=== PATIENT | male | born 1955 | race Caucasian/White ===

== ENCOUNTER 2020-04-25 10:00 | Outpatient (REF) | payer OTHER, SELFPAY ==
[2020-04-25 12:43] LABS: Estimated Average Glucose 140 mg/dL; Hemoglobin A1c % 6.5 %
== END 2020-04-25 10:01 | disposition home or self-care (01) ==
LOC: HO.MANLR 10:00
PROVIDERS: PCP Internal Medicine; Visit Provider Internal Medicine
DX: E11.9 Type 2 diabetes mellitus without complications (principal)
CPT/HCPCS: 83036

== ENCOUNTER 2020-09-10 08:23 | Outpatient (REF) | payer MEDICARE, SELFPAY ==
[2020-09-10 11:40] LABS: Estimated Average Glucose 186 mg/dL; Hemoglobin A1c % 8.1 %
[2020-09-10 12:38] LABS: Alanine Aminotransferase 30 U/L (0-40); Albumin Level 4.3 g/dL (3.5-5.0); Alkaline Phosphatase 81 U/L (39-117); Anion Gap 13 (12-20); Aspartate Amino Transferase 13 U/L (5-37); Bilirubin Total 0.7 mg/dL (0.0-1.0); Blood Urea Nitrogen 21 mg/dL (9-16); Calcium 9.4 mg/dL (8.4-10.2); Carbon Dioxide 28 mmol/L (22-29); Chloride 103 mmol/L (96-108); Cholesterol 220 mg/dL; Estimated Glomerular Filt Rate > 60; Glucose Fasting 173 mg/dL (60-99); HDL Cholesterol 47 mg/dL; LDL Cholesterol Calculated 101 mg/dl; Potassium 4.5 mmol/L (3.3-5.1); Sodium 139 mmol/L (135-145); Total Protein 6.8 g/dL (6.5-8.0); Triglycerides 362 mg/dL
[2020-09-10 14:35] LABS: Creatinine Urine 147.68 mg/dL; Microalbum/Creatinine Ratio Ur 16.2 ug/mg cr
== END 2020-09-10 08:24 | disposition home or self-care (01) ==
LOC: HO.MANLR 08:23
PROVIDERS: PCP Internal Medicine; Visit Provider Internal Medicine
DX: E11.9 Type 2 diabetes mellitus without complications (principal); E78.5 Hyperlipidemia, unspecified
CPT/HCPCS: 36415; 80053; 80061; 82043; 83036

== ENCOUNTER 2020-10-31 15:16 | Outpatient (REF) | payer MEDICARE, SELFPAY ==
[2020-11-01 04:42] LABS: Estimated Average Glucose 171 mg/dL; Hemoglobin A1c % 7.6 %
== END 2020-10-31 15:17 | disposition home or self-care (01) ==
LOC: HO.MANLDS 15:16
PROVIDERS: PCP Internal Medicine; Visit Provider Internal Medicine
DX: E11.9 Type 2 diabetes mellitus without complications (principal); E78.5 Hyperlipidemia, unspecified
CPT/HCPCS: 36415; 83036

== ENCOUNTER 2021-02-20 10:53 | Outpatient (REF) | payer MEDICARE, SELFPAY ==
[2021-02-20 13:13] LABS: Estimated Average Glucose 126 mg/dL
== END 2021-02-20 10:54 | disposition home or self-care (01) ==
LOC: HO.MANLDS 10:53
PROVIDERS: PCP Internal Medicine; Visit Provider Internal Medicine
DX: E11.9 Type 2 diabetes mellitus without complications (principal)
CPT/HCPCS: 36415; 83036

== ENCOUNTER 2021-06-18 08:49 | Outpatient (REF) | payer MEDICARE, SELFPAY ==
[2021-06-18 11:17] LABS: Estimated Average Glucose 128 mg/dL; Hemoglobin A1c % 6.1 %
== END 2021-06-18 08:50 | disposition home or self-care (01) ==
LOC: HO.MANLDS 08:49
PROVIDERS: PCP Internal Medicine; Visit Provider Internal Medicine
DX: E11.9 Type 2 diabetes mellitus without complications (principal)
CPT/HCPCS: 36415; 83036

== ENCOUNTER 2021-09-23 09:13 | Outpatient (REF) | payer MEDICARE, SELFPAY ==
[2021-09-23 11:35] LABS: Estimated Average Glucose 131 mg/dL; Hemoglobin A1c % 6.2 %
== END 2021-09-23 09:14 | disposition home or self-care (01) ==
LOC: HO.MANLDS 09:13
PROVIDERS: PCP Internal Medicine; Visit Provider Internal Medicine
DX: E11.9 Type 2 diabetes mellitus without complications (principal)
CPT/HCPCS: 36415; 83036

== ENCOUNTER 2022-01-10 08:31 | Outpatient (REF) | payer MEDICARE, SELFPAY ==
[2022-01-10 11:20] LABS: Estimated Average Glucose 128 mg/dL; Hemoglobin A1c % 6.1 %
[2022-01-10 11:21] LABS: Alanine Aminotransferase 12 U/L (0-40); Albumin Level 4.6 g/dL (3.5-5.0); Alkaline Phosphatase 71 U/L (39-117); Anion Gap 15 (12-20); Aspartate Amino Transferase 13 U/L (5-37); Bilirubin Total 0.2 mg/dL (0.0-1.0); Blood Urea Nitrogen 40 mg/dL (9-16); Calcium 9.8 mg/dL (8.4-10.2); Carbon Dioxide 20 mmol/L (22-29); Chloride 109 mmol/L (96-108); Cholesterol 184 mg/dL; Estimated Glomerular Filt Rate 42; Glucose Random 114 mg/dL (60-115); HDL Cholesterol 36 mg/dL; LDL Cholesterol Calculated 99 mg/dl; Potassium 5.9 mmol/L (3.3-5.1); Sodium 138 mmol/L (135-145); Total Protein 7.3 g/dL (6.5-8.0); Triglycerides 248 mg/dL
[2022-01-10 11:56] LABS: Microalbum/Creatinine Ratio Ur 17.8 ug/mg cr
== END 2022-01-10 08:32 | disposition home or self-care (01) ==
LOC: HO.MANLDS 08:31
PROVIDERS: Visit Provider Internal Medicine
DX: E11.9 Type 2 diabetes mellitus without complications (principal)
CPT/HCPCS: 36415; 80053; 80061; 82043; 83036

== ENCOUNTER 2022-01-20 10:11 | Outpatient (REF) | payer MEDICARE, SELFPAY ==
[2022-01-20 12:19] LABS: Anion Gap 13 (12-20); Blood Urea Nitrogen 24 mg/dL (9-16); Carbon Dioxide 22 mmol/L (22-29); Chloride 108 mmol/L (96-108); Estimated Glomerular Filt Rate 50; Glucose Random 152 mg/dL (60-115); Potassium 4.7 mmol/L (3.3-5.1); Sodium 138 mmol/L (135-145)
== END 2022-01-20 10:12 | disposition home or self-care (01) ==
LOC: HO.MANLDS 10:11
PROVIDERS: Visit Provider Internal Medicine
DX: E87.5 Hyperkalemia (principal)
CPT/HCPCS: 36415; 80048

== ENCOUNTER 2022-02-03 10:08 | Outpatient (REF) | payer MEDICARE, SELFPAY ==
[2022-02-03 11:49] LABS: Anion Gap 12 (12-20); Blood Urea Nitrogen 24 mg/dL (9-16); Carbon Dioxide 25 mmol/L (22-29); Chloride 108 mmol/L (96-108); Estimated Glomerular Filt Rate 49; Glucose Random 225 mg/dL (60-115); Potassium 4.8 mmol/L (3.3-5.1); Sodium 140 mmol/L (135-145)
== END 2022-02-03 10:09 | disposition home or self-care (01) ==
LOC: HO.MANLDS 10:08
PROVIDERS: Visit Provider Internal Medicine
DX: E87.6 Hypokalemia (principal)
CPT/HCPCS: 36415; 80048

== ENCOUNTER 2022-02-24 11:29 | Outpatient (REF) | payer MEDICARE, SELFPAY ==
[2022-02-24 14:05] LABS: Anion Gap 14 (12-20); Blood Urea Nitrogen 22 mg/dL (9-16); Calcium 9.3 mg/dL (8.4-10.2); Carbon Dioxide 23 mmol/L (22-29); Chloride 105 mmol/L (96-108); Estimated Glomerular Filt Rate 46; Glucose Random 308 mg/dL (60-115); Potassium 4.9 mmol/L (3.3-5.1); Sodium 137 mmol/L (135-145)
== END 2022-02-24 11:30 | disposition home or self-care (01) ==
LOC: HO.MANLDS 11:29
PROVIDERS: Visit Provider Internal Medicine
DX: N28.9 Disorder of kidney and ureter, unspecified (principal)
CPT/HCPCS: 36415; 80048

== ENCOUNTER 2022-04-08 10:39 | Outpatient (REF) | payer MEDICARE, SELFPAY ==
[2022-04-08 14:33] LABS: Anion Gap 21 (12-20); Blood Urea Nitrogen 24 mg/dL (9-16); Calcium 10.2 mg/dL (8.4-10.2); Carbon Dioxide 21 mmol/L (22-29); Chloride 105 mmol/L (96-108); Estimated Glomerular Filt Rate 49; Glucose Random 160 mg/dL (60-115); Potassium 5.8 mmol/L (3.3-5.1); Sodium 141 mmol/L (135-145)
[2022-04-09 05:10] LABS: Estimated Average Glucose 128 mg/dL; Hemoglobin A1c % 6.1 %
== END 2022-04-08 10:40 | disposition home or self-care (01) ==
LOC: HO.MANLDS 10:39
PROVIDERS: Visit Provider Internal Medicine
DX: N28.9 Disorder of kidney and ureter, unspecified (principal)
CPT/HCPCS: 36415; 80048; 83036

== ENCOUNTER 2022-07-15 08:17 | Outpatient (REF) | payer MEDICARE, SELFPAY ==
[2022-07-15 11:54] LABS: Estimated Average Glucose 134 mg/dL; Hemoglobin A1c % 6.3 %
[2022-07-15 12:13] LABS: Alanine Aminotransferase 15 U/L (0-40); Albumin Level 4.4 g/dL (3.5-5.0); Alkaline Phosphatase 71 U/L (39-117); Anion Gap 11 (12-20); Aspartate Amino Transferase 15 U/L (5-37); Bilirubin Total 0.7 mg/dL (0.0-1.0); Blood Urea Nitrogen 25 mg/dL (9-16); Calcium 9.7 mg/dL (8.4-10.2); Carbon Dioxide 25 mmol/L (22-29); Chloride 106 mmol/L (96-108); Cholesterol 145 mg/dL; Estimated Glomerular Filt Rate 56; Glucose Random 136 mg/dL (60-115); HDL Cholesterol 46 mg/dL; LDL Cholesterol Calculated 65 mg/dl; Sodium 137 mmol/L (135-145); Total Protein 6.8 g/dL (6.5-8.0); Triglycerides 173 mg/dL
[2022-07-15 15:04] LABS: Creatinine Urine 89.62 mg/dL; Microalbum/Creatinine Ratio Ur 33.4 ug/mg cr
== END 2022-07-15 08:18 | disposition home or self-care (01) ==
LOC: HO.MANLDS 08:17
PROVIDERS: Visit Provider Internal Medicine
DX: E11.9 Type 2 diabetes mellitus without complications (principal)
CPT/HCPCS: 36415; 80053; 80061; 82043; 83036

== ENCOUNTER 2022-10-10 09:26 | Outpatient (REF) | payer MEDICARE, SELFPAY ==
[2022-10-10 12:20] LABS: Estimated Average Glucose 143 mg/dL; Hemoglobin A1c % 6.6 %
== END 2022-10-10 09:27 | disposition home or self-care (01) ==
LOC: HO.MANLDS 09:26
PROVIDERS: Visit Provider Internal Medicine
DX: E11.9 Type 2 diabetes mellitus without complications (principal)
CPT/HCPCS: 36415; 83036

== ENCOUNTER 2023-01-20 10:08 | Outpatient (REF) | payer MEDICARE, SELFPAY ==
[2023-01-20 13:37] LABS: Estimated Average Glucose 126 mg/dL
[2023-01-20 14:02] LABS: Alanine Aminotransferase 20 U/L (0-40); Albumin Level 4.3 g/dL (3.5-5.0); Alkaline Phosphatase 88 U/L (39-117); Anion Gap 14 (12-20); Aspartate Amino Transferase 12 U/L (5-37); Bilirubin Total 0.5 mg/dL (0.0-1.0); Blood Urea Nitrogen 18 mg/dL (9-16); Calcium 9.9 mg/dL (8.4-10.2); Carbon Dioxide 23 mmol/L (22-29); Chloride 107 mmol/L (96-108); Estimated Glomerular Filt Rate 50; Glucose Random 214 mg/dL (60-115); Potassium 4.6 mmol/L (3.3-5.1); Sodium 139 mmol/L (135-145); Total Protein 6.9 g/dL (6.5-8.0)
[2023-01-20 14:05] LABS: Prostate Specific Antigen 0.89 ng/mL (<0.05-4.0)
== END 2023-01-20 10:09 | disposition home or self-care (01) ==
LOC: HO.MANLDS 10:08
PROVIDERS: Visit Provider Internal Medicine
DX: E11.9 Type 2 diabetes mellitus without complications (principal); Z12.5 Encounter for screening for malignant neoplasm of prostate
CPT/HCPCS: 36415; 80053; 83036; 84153

== ENCOUNTER 2023-04-29 08:22 | Outpatient (REF) | payer MEDICARE, SELFPAY ==
[2023-04-29 14:10] LABS: Estimated Average Glucose 128 mg/dL; Hemoglobin A1c % 6.1 % (<6.0)
[2023-04-29 14:34] LABS: Cholesterol 144 mg/dL (<200); HDL Cholesterol 47 mg/dL (>40); LDL Cholesterol Calculated 73 mg/dL (<100); Triglycerides 124 mg/dL (<150)
== END 2023-04-29 08:23 | disposition home or self-care (01) ==
LOC: HO.MANLDS 08:22
PROVIDERS: Visit Provider Internal Medicine
DX: E11.9 Type 2 diabetes mellitus without complications (principal); Z12.5 Encounter for screening for malignant neoplasm of prostate
CPT/HCPCS: 36415; 80061; 83036

== ENCOUNTER 2023-07-03 08:08 | Outpatient (REF) | payer MEDICARE, SELFPAY ==
[2023-07-03 13:56] LABS: Estimated Average Glucose 137 mg/dL; Hemoglobin A1c % 6.4 % (<6.0)
[2023-07-03 14:05] LABS: Alanine Aminotransferase 14 U/L (0-40); Albumin Level 4.3 g/dL (3.5-5.0); Alkaline Phosphatase 63 U/L (39-117); Anion Gap 14 (12-20); Aspartate Amino Transferase 16 U/L (5-37); Bilirubin Total 0.4 mg/dL (0.0-1.0); Blood Urea Nitrogen 27 mg/dL (9-16); Calcium 9.6 mg/dL (8.4-10.2); Carbon Dioxide 21 mmol/L (22-29); Chloride 107 mmol/L (96-108); Cholesterol 158 mg/dL (<200); Estimated Glomerular Filt Rate 53; Glucose Random 140 mg/dL (60-115); HDL Cholesterol 48 mg/dL (>40); LDL Cholesterol Calculated 81 mg/dL (<100); Potassium 4.3 mmol/L (3.3-5.1); Sodium 138 mmol/L (135-145); Total Protein 6.9 g/dL (6.5-8.0); Triglycerides 149 mg/dL (<150)
== END 2023-07-03 08:09 | disposition home or self-care (01) ==
LOC: HO.MANLDS 08:08
PROVIDERS: Visit Provider Internal Medicine
DX: E11.9 Type 2 diabetes mellitus without complications (principal); Z12.5 Encounter for screening for malignant neoplasm of prostate
CPT/HCPCS: 36415; 80053; 80061; 83036

== ENCOUNTER 2023-10-28 08:01 | Outpatient (REF) | payer MEDICARE, SELFPAY ==
[2023-10-28 13:40] LABS: Estimated Average Glucose 146 mg/dL; Hemoglobin A1c % 6.7 % (<6.0)
== END 2023-10-28 08:02 | disposition home or self-care (01) ==
LOC: HO.MANLDS 08:01
PROVIDERS: Visit Provider Internal Medicine
DX: E11.9 Type 2 diabetes mellitus without complications (principal)
CPT/HCPCS: 36415; 83036

== ENCOUNTER 2024-02-22 08:08 | Outpatient (REF) | payer MEDICARE, SELFPAY ==
[2024-02-22 13:32] LABS: Alanine Aminotransferase 12 U/L (0-40); Albumin Level 4.5 g/dL (3.5-5.0); Alkaline Phosphatase 71 U/L (39-117); Anion Gap 14 (12-20); Aspartate Amino Transferase 13 U/L (5-37); Bilirubin Total 0.4 mg/dL (0.0-1.0); Blood Urea Nitrogen 23 mg/dL (9-16); Calcium 9.6 mg/dL (8.4-10.2); Carbon Dioxide 22 mmol/L (22-29); Chloride 109 mmol/L (96-108); Cholesterol 172 mg/dL (<200); Estimated Glomerular Filt Rate 56; Glucose Random 122 mg/dL (60-115); HDL Cholesterol 41 mg/dL (>40); LDL Cholesterol Calculated 85 mg/dL (<100); Potassium 4.2 mmol/L (3.3-5.1); Sodium 141 mmol/L (135-145); Total Protein 7.1 g/dL (6.5-8.0); Triglycerides 232 mg/dL (<150)
[2024-02-22 13:42] LABS: Estimated Average Glucose 137 mg/dL; Hemoglobin A1c % 6.4 % (<6.0)
[2024-02-22 13:43] LABS: Creatinine Urine 85.12 mg/dL; Microalbum/Creatinine Ratio Ur 11.7 ug/mg cr (<30)
== END 2024-02-22 08:09 | disposition home or self-care (01) ==
LOC: HO.MANLDS 08:08
PROVIDERS: Visit Provider Internal Medicine
DX: E11.9 Type 2 diabetes mellitus without complications (principal); E78.00 Pure hypercholesterolemia, unspecified
CPT/HCPCS: 36415; 80053; 80061; 82043; 82570; 83036

== ENCOUNTER 2024-05-27 10:37 | Outpatient (REF) | payer MEDICARE, SELFPAY ==
[2024-05-27 13:49] LABS: Estimated Average Glucose 140 mg/dL; Hemoglobin A1C 178.3658 umol/L; Hemoglobin A1c % 6.5 % (<6.0); Total Hemoglobin (HGBA1C) 3753.1435 umol/L
== END 2024-05-27 10:38 | disposition home or self-care (01) ==
LOC: HO.MANLDS 10:37
PROVIDERS: Visit Provider Internal Medicine
DX: E11.9 Type 2 diabetes mellitus without complications (principal); E78.00 Pure hypercholesterolemia, unspecified
CPT/HCPCS: 36415; 83036

== ENCOUNTER 2024-09-16 09:07 | Outpatient (REF) | payer MEDICARE, SELFPAY ==
--- OUTSIDE RECORDS SUMMARY | 2024-09-16 09:51 | XMS_ITS | Data Portability ---
Author Organization [facility] Home Service Address [address] [place] [address] Assessment Encounter Date Assessment Date Assessment LastModified by Organization Details LastModified Time 07/17/2023 07/17/2023 . [email or web address] Not available 11/2023 13:52:07 11/03/2023 11/03/2023 [id number] [place] [id number] (REFRIGERATOR GLAZIER) [facility] MODERATE MUST MEET 2 OUT OF 3 ELEMENTS: PROBLEMS, DATA OR RISK ELEMENT 1: PROBLEMS ADDRESSED 1 OR MORE CHRONIC ILLNESS WITH EXACERBATION OR 2 OR MORE STABLE CHRONIC ILLNESSES OR 1 UNDIAGNOSED NEW PROBLEM OR 1 ACUTE ILLNESS W/SYMPTOMS OR 1 ACUTE COMPLICATED INJURY ELEMENT 2: DATA MUST MEET 1 OF 3 CATEGORIES CATEGORY 1: REVIEW OF PRIOR EXTERNAL NOTES, REVIEW OF RESULTS, ORDERING OF EACH TEST, ASSESSMENT REQUIRING INDEPENDENT HISTORIAN OR CATEGORY 2: INDEPENDENT INTERPRETATION OF TESTS BY ANOTHER PHYSICIAN OR SPECIALIST OR CATEGORY 3: DISCUSSION OF MGT OR TEST INTERPRETATION W/EXTERNAL PHYSICIAN OR SPECIALIST ELEMENT 3: RISK RISK OF COMPLICATIONS AND/OR MORBIDITY OR MORTALITY OF PATIENT MANAGEMENT PROVIDER MUST THOROUGHLY DOCUMENT EACH ELEMENT THAT IS COVERED Not available 11/03/2023 14:04:19 12/16/2023 12/16/2023 [id number] [place] [id number] (REFRIGERATOR GLAZIER) [facility]DM MODERATE MUST MEET 2 OUT OF 3 ELEMENTS: PROBLEMS, DATA OR RISK ELEMENT 1: PROBLEMS ADDRESSED 1 OR MORE CHRONIC ILLNESS WITH EXACERBATION OR 2 OR MORE STABLE CHRONIC ILLNESSES OR 1 UNDIAGNOSED NEW PROBLEM OR 1 ACUTE ILLNESS W/SYMPTOMS OR 1 ACUTE COMPLICATED INJURY ELEMENT 2: DATA MUST MEET 1 OF 3 CATEGORIES CATEGORY 1: REVIEW OF PRIOR EXTERNAL NOTES, REVIEW OF RESULTS, ORDERING OF EACH TEST, ASSESSMENT REQUIRING INDEPENDENT HISTORIAN OR CATEGORY 2: INDEPENDENT INTERPRETATION OF TESTS BY ANOTHER PHYSICIAN OR SPECIALIST OR CATEGORY 3: DISCUSSION OF MGT OR TEST INTERPRETATION W/EXTERNAL PHYSICIAN OR SPECIALIST ELEMENT 3: RISK RISK OF COMPLICATIONS AND/OR MORBIDITY OR MORTALITY OF PATIENT MANAGEMENT PROVIDER MUST THOROUGHLY DOCUMENT EACH ELEMENT THAT IS COVERED Not available 12/16/2023 14:04:38 02/23/2024 02/23/2024 [id number] [place] [id number] (REFRIGERATOR GLAZIER) MDM MODERATE MUST MEET 2 OUT OF 3 ELEMENTS: PROBLEMS, DATA OR RISK ELEMENT 1: PROBLEMS ADDRESSED 1 OR MORE CHRONIC ILLNESS WITH EXACERBATION OR 2 OR MORE STABLE CHRONIC ILLNESSES OR 1 UNDIAGNOSED NEW PROBLEM OR 1 ACUTE ILLNESS W/SYMPTOMS OR 1 ACUTE COMPLICATED INJURY ELEMENT 2: DATA MUST MEET 1 OF 3 CATEGORIES CATEGORY 1: REVIEW OF PRIOR EXTERNAL NOTES, REVIEW OF RESULTS, ORDERING OF EACH TEST, ASSESSMENT REQUIRING INDEPENDENT HISTORIAN OR CATEGORY 2: INDEPENDENT INTERPRETATION OF TESTS BY ANOTHER PHYSICIAN OR SPECIALIST OR CATEGORY 3: DISCUSSION OF MGT OR TEST INTERPRETATION W/EXTERNAL PHYSICIAN OR SPECIALIST ELEMENT 3: RISK RISK OF COMPLICATIONS AND/OR MORBIDITY OR MORTALITY OF PATIENT MANAGEMENT PROVIDER MUST THOROUGHLY DOCUMENT EACH ELEMENT THAT IS COVERED Not available 02/23/2024 14:20:57 06/01/2024 06/01/2024 [id number] [place] [id number] (REFRIGERATOR GLAZIER) MDM MODERATE MUST MEET 2 OUT OF 3 ELEMENTS: PROBLEMS, DATA OR RISK ELEMENT 1: PROBLEMS ADDRESSED 1 OR MORE CHRONIC ILLNESS WITH EXACERBATION OR 2 OR MORE STABLE CHRONIC ILLNESSES OR 1 UNDIAGNOSED NEW PROBLEM OR 1 ACUTE ILLNESS W/SYMPTOMS OR 1 ACUTE COMPLICATED INJURY ELEMENT 2: DATA MUST MEET 1 OF 3 CATEGORIES CATEGORY 1: REVIEW OF PRIOR EXTERNAL NOTES, REVIEW OF RESULTS, ORDERING OF EACH TEST, ASSESSMENT REQUIRING INDEPENDENT HISTORIAN OR CATEGORY 2: INDEPENDENT INTERPRETATION OF TESTS BY ANOTHER PHYSICIAN OR SPECIALIST OR CATEGORY 3: DISCUSSION OF MGT OR TEST INTERPRETATION W/EXTERNAL PHYSICIAN OR SPECIALIST ELEMENT 3: RISK RISK OF COMPLICATIONS AND/OR MORBIDITY OR MORTALITY OF PATIENT MANAGEMENT PROVIDER MUST THOROUGHLY DOCUMENT EACH ELEMENT THAT IS COVERED Not available 06/01/2024 16:22:39 Plan of Treatment Reminders Order Date Submit Date Provider Last Modified By Organization Details Last Modified Time Details Appointments FOLLOW UP 15 2024 02:00P M DR LEE Not available Not available Not available Lab HbA1c (hemoglob in A1c), blood 2023 024 [facility], [address] [place] [address], [place], [address], 05/30/2024 11:31:17 HbA1c (hemoglob in A1c), blood 2023 024 [facility], [address] [facility], [place], [address], 05/30/2024 11:31:17 Referral None recorded. Procedures None recorded. Surgeries None recorded. Imaging None recorded. Medication Orders amlodipin e 5 mg tablet 2023 [id number], [address], [place], [phone], 11/03/2023 14:08:17 Patient TargetsNo targets recorded. Patient InstructionsNo instructions recorded. Reason for Referral None Reported. Results Created Date Observation Date Name Description Value Unit Range Abnormal Flag Note LastModifiedBy Organization Detail LastModifiedTime Result Notes None recorded. Problems Name Problem SNOMED Code Status Onset Date Resolution Date Notes Provider Name and Address Organization Details Recorded Time Hypertensi ve disorder 86063529 Active 2020 Fredi Lee, [address] [place] [address], [phone], [facility] 1 12:18:21 Hyperkalem ia 70522888 Active 2021 Fredi Lee, [address] [place] [address], [phone], [facility] 2 15:08:31 Renal insufficie ncy 575477954 Active 2021 Fredi Lee DO [address] [place] [address], [phone], [facility] 2 15:19:32 Type 2 diabetes mellitus 44386473 Active 2017 Vale martinez [facility] 8 12:10:24 Hypertrigl yceridemia 032746101 Active 2017 Vale martinez [facility] 8 12:10:55 Problem Notes None recorded. Procedures Surgical History Date Name Laterality Status Provider Name and Address Organization Details Recorded Time 0 Colonoscopy completed Vale Churchill [facility] 10/12/2019 10:17:59 Imaging Results None recorded. Procedure Notes None recorded. Medical Equipment None Reported. Allergies Allergen ID Allergen Name Allergen Category Reaction Reaction Severity Criticality Documentation Date Start Date Code Code System Note Provider Name and Address Organization Details Recorded Time 3785 metformin medicatio n diarrhea Not available Not available 10/12/2019 6809 RxNorm Fredi Lee, DO [address] [place], [address], [facility] 0 13:45:52 731 penicilli n V Not available Not available Not available Not available 10/07/2017 7984 RxNorm quest ionab lalitha martinez, [facility] 8 12:10:16 Medications Name Sig Start Date Stop Date Status Note LastModified by Organization Details LastModified Time Prescription - Prior Authorizatio n Request 05/01 completed Not Available Not Available Not Available azithromycin 250 mg tablet 05/05 completed Not Available Not Available Not Available hydrocodone 5 mg-acetamino phen 325 mg tablet TAKE 1 TABLET BY MOUTH EVERY 6 HOURS NEEDED FOR PAIN 01/23 completed Not Available Not Available Not Available amlodipine 5 mg tablet TAKE 3 TABLETS BY MOUTH EVERY DAY active Not Available Not Available No t Available amoxicillin 500 mg tablet 01/23 completed Not Available Not Available Not Available amlodipine 10 mg tablet TAKE 1 TABLET BY MOUTH EVERY DAY 11/02 completed Not Available Not Available Not Available lisinopril 10 mg tablet TAKE 1 TABLET BY MOUTH EVERY DAY 02/11 completed Not Available Not Available Not Available glimepiride 4 mg tablet TAKE 1 TABLET BY MOUTH TWICE DAILY 2023 active Not Available Not Available Not Avai lable chlorhexidin e gluconate 0.12 % mouthwash 05/05 completed Not Available Not Available Not Available Januvia 100 mg tablet 05/01 completed Not Available Not Available Not Available Janumet 05/01 completed Not Available Not Available Not Available OneTouch Delica Lancets 33 gauge Take 1 each twice a day by miscell. route for 90 days. active Not Available Not Available No t Available OneTouch Verio test strips test twice a day active Not Available Not Available No t Available Janumet XR 50 mg-1,000 mg tablet,exten ded release TAKE 1 TABLET BY MOUTH TWICE DAILY active Not Available Not Available No t Available Soci AdsTouch Verio Flex Start kit test blood sugar twice a day 05/01 completed Not Available Not Available Not Available Vitals Date Recorded Body height Body mass index (BMI) Body weight Heart rate Oxygen saturation Oxygen saturation in Arterial blood by Pulse oximetry Systolic blood pressure Diastolic blood pressure Provider Name and Address Organization Details Last Updated DateTime 4 170.18 cm 22.3 kg/m2 63443.4 8 g 89 /min 97 % 97 % 162 mm[Hg] 82 mm[Hg] Gretta Wilkerson [facility] 4 13:47:48 Date Recorded Body height Body mass index (BMI) Body weight Heart rate Respiratory rate Oxygen saturation Oxygen saturation in Arterial blood by Pulse oximetry Systolic blood pressure Diastolic blood pressure Provider Name and Address Organization Details Last Updated DateTime 4 170.18 cm 22 kg/m2 14784.0 1 g 84 /min 16 /min 98 % 98 % 124 mm[Hg] 70 mm[Hg] Gonzalez Casas [facility] 4 13:50:48 Date Recorded Body height Body mass index (BMI) Body weight Heart rate Oxygen saturation Oxygen saturation in Arterial blood by Pulse oximetry Systolic blood pressure Diastolic blood pressure Provider Name and Address Organization Details Last Updated DateTime 4 170.18 cm 21.6 kg/m2 75249.1 1 g 88 /min 98 % 98 % 142 mm[Hg] 82 mm[Hg] Gonzalez Casas [facility] 4 14:08:54 Date Recorded Body height Body mass index (BMI) Body weight Heart rate Oxygen saturation Oxygen saturation in Arterial blood by Pulse oximetry Systolic blood pressure Diastolic blood pressure Provider Name and Address Organization Details Last Updated DateTime 4 170.18 cm 21.5 kg/m2 27542.1 5 g 84 /min 100 % 100 % 148 mm[Hg] 68 mm[Hg] Kim Doan [facility] 4 16:17:27 Social History Question Answer Notes LastModified by Organizat ion Details LastModified Time Tobacco Smoking Status Never Smoker Shayy martinez [facility] 01/25/2018 15:21:39 What Was The Date Of Your Most Recent Tobacco Screening? 06/01/2024 [email or web address] Information not available 06/01/2024 Do You Or Have You Ever Used Any Other Forms Of Tobacco Or Nicotine? No [email or web address] Information not available 01/23/2023 Sex: Unknown Functional Status None recorded. Mental Status None recorded. Family History Nothing Reported. Medical History No medical history recorded. Immunizations Vaccine Type Date Status Note Provider Nam e and Address Organization Details Recorded Time COVID-19, mRNA, LNP-S, PF, 30 mcg/0.3 mL dose 1 completed Fredi Lee DO [address] [place] [address], [phone], [facility] 02/25/2021 13:35:34 COVID-19, mRNA, LNP-S, PF, 30 mcg/0.3 mL dose 1 completed Fredi Lee DO [address] [place] [address], [phone], [facility] 02/25/2021 13:35:41 COVID-19, mRNA, LNP-S, PF, 30 mcg/0.3 mL dose 1 completed Ana martinez, [facility] 07/18/2022 08:42:54 COVID-19, mRNA, LNP-S, PF, 30 mcg/0.3 mL dose 2 completed Ana martinez [facility] 07/18/2022 08:43:01 zoster, unspecified formulation 0 completed Ana martinez [facility] 07/18/2022 08:43:23 Tdap 1 completed Ana martinez [facility] 07/18/2022 08:43:48 zoster, unspecified formulation 1 completed Fredi Lee DO [address] [place] [address], [phone], [facility] 09/14/2020 14:11:42 Influenza, split virus, quadrivalent, preservative 0 completed Fredi Lee, DO [address] [place] [address], [phone], [facility] 09/14/2020 14:12:08 Past Encounters Encounter ID Performer Location Encounter Start Date Encounter Closed Date Diagnosis/Indication Diagnosis SNOMED-CT Code Diagnosis ICD10 Code Diagnosis Note [id number] Fredi Lee [facility] [address] [facility],[place] [address] 01/25/2018 14:49:26 01/25/2018 16:14:45 Type 2 diabetes mellitus 66683207 E11.9 [id number] Fredi Lee DO [facility] [address] [facility],[place] [address] 05/07/2018 13:46:45 05/07/2018 14:48:07 Hypertriglyceridemia 393795551 E78.1 here for check up will get a new lab in the spring Type 2 cherry betes mellitus 03254465 E11.9 a1c has crept up with no apparent reason wgt is stable but not exercising like he used to but will attend to this will rechk in 3-4 months [id number] Fredi Lee [facility] [address],[place] [address] 09/01/2018 13:39:51 09/01/2018 14:15:46 Hypertriglyceridemia 915113606 E78.1 here for check up will get a new lab in the spring Type 2 cherry betes mellitus 36353332 E11.9 a1c has crept up again with no apparent reason wgt is stable but not exercising like he used to but we talked about checking sugars throughout the day and figuring out the reason for the elevation will rechk in 3-4 months [id number] Fredi Lee [facility] [address],[place] [address] 09/24/2018 11:44:45 09/24/2018 12:11:11 Type 2 diabetes mellitus 41026728 E11.9 a1c has crept up again with no apparent reason wgt is stable but not exercising like he used to but we talked about checking sugars throughout the day and figuring out the reason for the elevation will rechk in 3-4 months will now have him check the sugars in the evening and at bedtime [id number] Fredi Lee DO [facility] [address] [facility],[place] [address] 12/29/2018 13:42:32 12/29/2018 14:18:02 Type 2 diabetes mellitus 87550112 E11.9 a1c has improved overall and is down to 6.8 wgt is down but not exercising like he used to but we talked about checking sugars throughout the day and will try to gain wgt with extra protein intake will rechk in 3-4 months will increase glimepirid e to bid will now have him check the sugars in the evening and at bedtime Hypertriglyceridemia 302 305815 E78.1 here for check up will get a new lab in the spring [id number] Fredi Lee DO [facility] [address] [facility],[place] [address] 04/01/2019 13:43:54 04/01/2019 15:21:22 Type 2 diabetes mellitus 57154526 E11.9 a1c has improved overall and is down to 6.7 was 6.8 wgt is down but not exercising like he used to but we talked about checking sugars throughout the day and will try to gain wgt with extra protein intake will rechk in 3-4 months will increase glimepirid e to bid will now have him check the sugars in the evening and at bedtime Hypertriglyceridemia 302 787282 E78.1 here for check up will get a new lab in the spring [id number] Fredi Lee DO [facility] [address] [facility],[place] [address] 07/04/2019 13:56:45 07/04/2019 14:14:20 Type 2 diabetes mellitus 14545373 E11.9 a1c is up to 8.2 from 6.7 wgt is up to 146 will rechk in 3-4 months will increase glimepirid e to bid Hypertriglyceridemia 302 685210 E78.1 here for check up will get a new lab in the summer [id number] Fredi Lee [facility] [address] [facility],[place] [address] 10/12/2019 13:32:59 10/12/2019 14:12:59 Type 2 diabetes mellitus 41636232 E11.9 a1c is up to 9.0 from 8.2 from 6.7 so we will try janumet XR as a slow release metformin and januvia and see if he tolerates this i gail give samples for 2 months and see how he does wgt is 146 and no change will rechk in 3-4 months glimepirid e to bid sarah need new lab for this january appt pt to call beforehand for lab slip Hypertriglyceridemia 302 006414 E78.1 here for check up will get a new lab in the summer [id number] Fredi Lee [facility] [address] [facility], [place] [address] 01/17/2020 13:31:18 01/17/2020 13:58:40 Hypertriglyceridemia 450748935 E78.1 here for check up and the LDL is down to 75!!!!! Type 2 cherry betes mellitus 71574828 E11.9 a1c is at 6.5 and was up to 9.0 from 8.2 from 6.7 his janumet samples are not covered without a prior auth wgt is 146 and no change will rechk in 3-4 months glimepirid e to daily sarah need new lab for this apr appt pt to call beforehand for lab slip [id number] Fredi Lee [facility] [address] [facility], [place] [address] 05/01/2020 13:44:53 05/01/2020 14:14:05 Hypertriglyceridemia 990132765 E78.1 here for check up and the LDL is down to 75!!!!! Type 2 cherry betes mellitus 20087576 E11.9 a1c is still at 6.5 and was 6.5 from last one and was up to 9.0 from 8.2 from 6.7 his janumet samples are not covered without a prior auth wgt is 146 and no change will rechk in 3-4 months glimepirid e to daily sarah need new lab for this apr appt pt to call beforehand for lab slip [id number] Fredi Lee DO [facility] [address] [facility] [address],[place] [address] 09/14/2020 14:00:34 09/14/2020 15:25:05 Hypertriglyceridemia 958843757 E78.1 here for check up and the LDL is down to 75!!!!! Type 2 cherry betes mellitus 23221492 E11.9 a1c is still at 6.5 and was 6.5 from last one and was up to 9.0 from 8.2 from 6.7 his janumet samples are not covered without a prior auth wgt is 146 and no change will rechk in 3-4 months glimepirid e to daily sarah need new lab for this oct appt pt to call beforehand for lab slip Essential hypertension 88959783 I10 will need to be aggressive [id number] Fredi Lee, [facility] [address] [facility],[address] [facility] [place] [address] 09/28/2020 12:11:25 09/28/2020 14:04:31 Hypertensive disorder 99658173 I10 will cont 10mg lisinopril as he had good bps at home he will record your bps on paper and will bring paper back Type 2 cherry betes mellitus 07241353 E11.9 a1c is still at 6.5 and was 6.5 from last one and was up to 9.0 from 8.2 from 6.7 his janumet samples are not covered without a prior auth wgt is 146 and no change will rechk in 3-4 months glimepirid e to daily will try the increase in janumet but will go back ot 1 if heartburn returns Adult [facility] th examination 983862782 Z00.00 will need to have this done please [id number] Fredi Lee, [facility] [address] [facility] [address],[place] [address] 11/05/2020 13:29:36 11/05/2020 14:09:18 Hypertensive disorder 85577383 I10 bp is now back to normal and no issues Hypertriglyceridemia 302 684730 E78.1 here for check up and the LDL is down to 75!!!!! Type 2 cherry betes mellitus 71179495 E11.9 he is much improved from 8.1 and doing good with 2 janumet and no side effects his a1c is now 7.6 and believe it is even lower than that now [id number] Fredi Lee [facility] [address] [facility],[place] [address] 02/25/2021 13:33:17 02/25/2021 13:57:57 Hypertensive disorder 04019536 I10 bp is now back to normal and no issues but we are wondering if lisinopril was culprit with diarrhea ?? Hypertriglyceridemia 302 188848 E78.1 here for check up and the LDL is down to 75!!!!! Type 2 cherry betes mellitus 70109328 E11.9 he is 6.0 much improved from 8.1 and doing good with 2 janumet and no(?) side effects his a1c is now 6 and believe it is even lower than that now [id number] Fredi Lee [facility] [address] [facility],[place] [address] 06/24/2021 08:57:01 06/24/2021 14:28:17 Hypertensive disorder 48675319 I10 bp is now back to normal and no issues but we are wondering if lisinopril Hypertriglyceridemia 302 952172 E78.1 here for check up and the LDL is down to 75!!!!! Type 2 cherry betes mellitus 24818612 E11.9 latest a1c is 6.1 he was 6.0 much improved from 8.1 and doing good with 2 janumet and one glimepirid 3 and no(?) side effects his a1c is now 6,1 and believe it is even lower than that now [id number] Fredi Lee [facility] [address] [facility],[place] [address] 10/02/2021 13:31:59 10/04/2021 11:47:48 Type 2 diabetes mellitus 17451932 E11.9 latest a1c is 6.2 was 6.1 he was 6.0 much improved from 8.1 and doing good with 2 janumet and one glimepirid 3 and no(?) side effectshas gained some wgthis a1c is now 6,1 and believe it is even lower than that now Hypertensive disorder 38 547076 I10 bp is now back to normal and no issues but we are wondering if lisinopril Hypertriglyceridemia 302 972612 E78.1 here for check up and the LDL is down to 75! 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 he is to stop the lisinopril and will rechk lab in a few days Hypertensive disorder 38 173974 I10 bp is now back to normal and no issues but we are wondering if lisinopril should be discont Type 2 cherry betes mellitus 57047747 E11.9 latest a1c is 6.1 was 6.1 he was 6.0 much improved from 8.1 and doing good with 2 janumet and one glimepirid 3 and no(?) side effectshas gained some wgthis a1c is now 6,1 and believe it is even lower than that now Hypertriglyceridemia 302 934755 E78.1 here for check up and the LDL is down to 99 was 75 [id number] Fredi Lee, [facility] [address] [facility] [place] [address] 02/11/2022 14:40:21 02/11/2022 15:33:24 Advance care planning 687200738 Z71.89 done Type 2 cherry betes mellitus 70264362 E11.9 latest a1c is 6.1 was 6.1 he was 6.0 much improved from 8.1 and doing good with 2 janumet and one glimepirid 3 and no(?) side effectshas gained some wgthis a1c is now 6,1 and believe it is even lower than that nowpatient advised he is due for DM eye exam Depression screening 171 630960 Z13.31 screening today negative Renal insufficiency 7231 22731 N28.9 due to combinatio n of htn DM and primarily dehydratio n as evid by BUN of 40now that he is drinking plenty of h20 his creat clr is better we will cont to follow this and pt will follow his bp at home as well [id number] Fredi WoodardSabrina Lee, [facility] [address] [facility],[place] [address] 04/14/2022 16:13:55 04/14/2022 16:53:17 Hypertensive disorder 74919145 I10 we will try amlodipine Type 2 cherry betes mellitus 51016039 E11.9 latest a1c is 6.1 was 6.1 he was 6.0 much improved from 8.1 and doing good with 2 janumet and one glimepirid 3 and no(?) side effectshas gained some wgthis a1c is now 6,1 and believe it is even lower than that nowpatient advised he is due for DM eye exam Renal insufficiency 7231 37681 N28.9 renal parameters are better after rechk and do not expect any further issuewill rechk in few [place] [id number] Fredi WoodardSabrina Lee [facility] [address] [facility],[place] [address] [place] [address] 07/18/2022 13:39:11 07/18/2022 14:24:49 Type 2 diabetes mellitus [id number] E11.9 latest a1c is 6.3 was 6.1 he was 6.0 much improved fromhas gained some wgthis a1c is now 6,1 and believe it is even lower than that nowpatient advised he is due for DM eye exam Hypertensive disorder 38 852238 I10 we will try amlodipine 10 mg [id number] Fredi Lee, [facility] [address] [facility], [place] [address] 01/23/2023 13:45:29 01/23/2023 14:15:45 Hypertensive disorder [id number] I10 we will cont amlodipine 10 mg Type 2 cherry betes mellitus 78628234 E11.9 latest a1c isdwon to 6 from 6.6 was 6.3 was 6.1 he was 6.0 much improved fromhas lost some wgthis a1c is now 6,0 and believe it is even lower than that nowpatient advised he is due for DM eye exam Renal insufficiency [id number] N28.9 renal parameters are better after rechk and do not expect any further issuewill rechk in few mo Hyperkalemia [id number] E8 7.5 resolved [id number] Fredi Lee [facility] [address] [facility],[place] [address] [place] [address] 05/05/2023 13:46:52 05/05/2023 15:07:23 Hyperkalemia [id number] E87.5 resolved Hypertriglyceridemia 302 640427 E78.1 here for check up and will have this rechk next visit Type 2 cherry betes mellitus 07552023 E11.9 latest a1c is down to 6.1 to 6 from 6.6 was 6.3 was 6.1 he was 6.0 much improved fromhas lost some wgtpatient advised he is due for DM eye exam again Hypertensive disorder 38 127909 I10 we will cont amlodipine 10 mg [id number] Fredi Lee [facility] [address] [facility],[place] [address] [place] [address] 07/17/2023 09:08:20 07/17/2023 13:57:31 Hypertriglyceridemia 043759918 E78.1 here for check up and will have this rechk next visit Type 2 cherry betes mellitus 56320518 E11.9 latest a1c is up to 6.4 6.1 to 6 from 6.6 was 6.3 was 6.1 he was 6.0 much improved fromhas lost some wgtpatient advised he is due for DM eye exam again Hypertensive disorder 38 533216 I10 we will cont amlodipine 10 mg [id number] [facility] [address] [facility],[place] [address] [place] [address] 11/03/2023 13:41:38 11/03/2023 15:45:26 Hypertriglyceridemia 628725254 E78.1 here for check up and will have this rechk next visit Hypertensive disorder 38 858883 I10 has been checking at home and bp has been elevatedwi ll try going to 15mg given he is tolerating the amlodipine so well Type 2 cherry betes mellitus 93278350 E11.9 latest a1c is up to 6.7, 6.4 to 6.1 from 6.6 was 6.3has not been active all last winterpati ent advised he is due for DM eye exam again [id number] Fredi Lee [facility] [address] [facility],[place] [address] 12/16/2023 13:44:50 12/16/2023 15:46:24 Hypertensive disorder 67831224 I10 has been checking at home and bp has [id number] given he is tolerating the amlodipine so well Hypertriglyceridemia 302 152574 E78.1 here for check up and will have this rechk next visit Type 2 cherry betes mellitus 44224485 E11.9 latest a1c is up to 6.7, 6.4 to 6.1 from 6.6 was 6.3has not been active all last [facility] ent advised he is due for DM eye exam again Depression screening 171 598568 Z13.31 screening today negative [id number] Fredi Lee [facility] [address] [facility],[place] [address] 02/23/2024 14:03:32 02/23/2024 14:52:14 Hypertensive disorder 44402251 I10 has been checking at home and bp has [id number] given he is tolerating the amlodipine so well Type 2 cherry betes mellitus 24459697 E11.9 a1c is down to 6.4 was 6.7 no issues now [id number] Fredi Lee [facility] [address] [facility],[place] [address] 06/01/2024 16:12:47 06/01/2024 16:40:52 Type 2 diabetes mellitus 52676518 E11.9 a1c is down to 6.5 doing ok 6.4 was 6.7 no issues now Hypertensive disorder 38 742595 I10 has been checking at home and bp has [id number] given he is tolerating the amlodipine so well Health Concerns Section Related Observation LastModified by Organization Detai ls LastModified Time None Recorded Concern Status LastModified by Organization Details LastModified Time None Recorded Advance Directives Directive None Recorded Payers Encounter Date Sequence Insurance Name Policy Number Policy [place] Covered Member ID [place] Member ID Guarantor Name 07/17/2023 1 [place] [employer] Castro Noyola [id number] Castro A Masaitis 11/03/2023 1 [place]ICARE [place]: [facility] Castro Falkaitis [id number] Castro Woodard Masaitis 12/16/2023 1 [place] [facility] Castro Woodard Masaitis [id number] Castro Woodard Masaitis 02/23/2024 1 [place] [facility] Castro Woodard Masaitis [id number] Castro Woodard Masaitis 06/01/2024 1 [place] [facility] Castro Falkaitis [id number] Castro Falkaitis Notes Date Note Type Note Provider Name and Address Organization Details Recorded Time 4 text/htm l Care Management - DiabetesReported bypatient.Self Care:seeing eye doctor yearly for dilated eye exam; checking feet regularly; normal range of home blood sugars (in the low 100s); no side effects from medications Associated Symptoms:symptoms are usually well controlled; no fatigue; no dizziness; no excessive sweating; no headaches; no confusion; no increased thirst; no increased appetite; no increased urination; no blurred vision; no numbness of feet; no calluses on feetNotes:feels well no vision no cp no sobbowels ok patient is evaluated via tele/video assessment per patient consentduring current pandemiclong discuss re lab results discussed in detail Fredi Lee, DO [address] [place] [address], [place], [address], [facility] 07/17/2023 13:56:16 4 text/htm l Care Management - DiabetesReported bypatient.Self Care:seeing eye doctor yearly for dilated eye exam; checking feet regularly; normal range of home blood sugars (in the low 100s); no side effects from medications Associated Symptoms:symptoms are usually well controlled; no fatigue; no dizziness; no excessive sweating; no headaches; no confusion; no increased thirst; no increased appetite; no increased urination; no blurred vision; no numbness of feet; no calluses on feetCare Management - HypertensionReported bypatient.Self Care:not under emotional stress Severity:symptoms are improving; does not interfere with daily activities Associated Symptoms:no dizziness; no lightheadedness; no chest pain; no shortness of breath; no palpitations; no edema; no calf muscle cramps; no blurred vision; no confusion; no headaches; no fatigue here for rech k and is doing ok ]has noticed a raising of his bp Fredi Lee DO [address] [place] [address], [phone], [facility] 11/03/2023 14:10:44 4 text/htm l here for rechk and is doing ok overallthe amlodipine glimepiride and janumet doing great lost some wgt Fredi LeeDO [address] [place] [address], [phone], [facility] 12/16/2023 14:07:33 4 text/htm l Care Management - DiabetesReported bypatient.Self Care:seeing eye doctor yearly for dilated eye exam; checking feet regularly; normal range of home blood sugars (in the low 100s); no side effects from medications Associated Symptoms:symptoms are usually well controlled; no fatigue; no dizziness; no excessive sweating; no headaches; no confusion; no increased thirst; no increased appetite; no increased urination; no blurred vision; no numbness of feet; no calluses on feetCare Management - HypertensionReported bypatient.Self Care:not under emotional stress Severity:symptoms are improving; does not interfere with daily activities Associated Symptoms:no dizziness; no lightheadedness; no chest pain; no shortness of breath; no palpitations; no edema; no calf muscle cramps; no blurred vision; no confusion; no headaches; no fatigue here for rechkhere for rechk and has been very busy and has lost wgt relates that he has been working outsidewgt [id number] is 6.4 was 6.[address] [place] [address], [phone], [facility] 02/23/2024 14:23:58 4 text/htm l Care Management - DiabetesReported bypatient.Self Care:seeing eye doctor yearly for dilated eye exam; checking feet regularly; normal range of home blood sugars (in the low 100s); no side effects from medications Associated Symptoms:symptoms are usually well controlled; no fatigue; no dizziness; no excessive sweating; no headaches; no confusion; no increased thirst; no increased appetite; no increased urination; no blurred vision; no numbness of feet; no calluses on feetCare Management - HypertensionReported bypatient.Self Care:not under emotional stress Severity:symptoms are improving; does not interfere with daily activities Associated Symptoms:no dizziness; no lightheadedness; no chest pain; no shortness of breath; no palpitations; no edema; no calf muscle cramps; no blurred vision; no confusion; no headaches; no fatigue here for rechk and doing ok overallno major issues noted Fredi Lee, DO [address] [facility], [place], [address], [facility] 06/01/2024 16:38:54
[2024-09-16 13:36] LABS: MANUAL DIFF FLAG NO
[2024-09-16 13:40] LABS: Basophils Absolute Auto 0.1 X10*3/uL (0.0-0.2); Basophils Percent Auto 1.6 % (0-2); Eosinophils Absolute Auto 0.2 X10*3/uL (0.0-0.4); Eosinophils Percent Auto 2.4 % (0-4); Hematocrit 40.5 % (42.0-52.0); Hemoglobin 13.7 g/dl (14.0-18.0); Imm Gran Abs Auto 0.04 X10*3/uL (0.00-0.03); Imm Gran Pct Auto 0.6 % (0.0-0.4); Lymphocytes Absolute Auto 1.5 X10*3/uL (1.2-4.9); Lymphocytes Percent Auto 21.8 % (20-40); Mean Corpuscular HGB Conc 33.8 g/dl (31.0-36.0); Mean Corpuscular Hemoglobin 29.5 pg (27.0-33.0); Mean Corpuscular Volume 87.1 fL (80.0-98.0); Mean Platelet Volume 10.8 fL (9.4-12.4); Monocytes Absolute Auto 0.7 X10*3/uL (0.1-1.2); Monocytes Percent Auto 9.2 % (2-11); Neutrophils Absolute Auto 4.6 x10*3/uL (2.0-8.3); Neutrophils Percent Auto 64.4 % (45-73); Platelet Count 378 X10*3/uL (160-400); Red Blood Count 4.65 X10*6/uL (4.60-5.80); Red Cell Distribution Width 13.2 % (11.0-16.0); White Blood Count 7.1 X10*3/uL (4.8-10.8)
[2024-09-16 14:08] LABS: Estimated Average Glucose 154 mg/dL
[2024-09-16 14:25] LABS: Alanine Aminotransferase 23 U/L (0-40); Albumin Level 4.5 g/dL (3.5-5.0); Anion Gap 14 (12-20); Aspartate Amino Transferase 22 U/L (5-37); Bilirubin Total 0.6 mg/dL (0.0-1.0); Blood Urea Nitrogen 26 mg/dL (9-16); Calcium 9.6 mg/dL (8.4-10.2); Carbon Dioxide 22 mmol/L (22-29); Chloride 106 mmol/L (96-108); Cholesterol 168 mg/dL (<200); Estimated Glomerular Filt Rate 53; Glucose Random 157 mg/dL (60-115); HDL Cholesterol 52 mg/dL (>40); LDL Cholesterol Calculated 76 mg/dL (<100); Potassium 4.4 mmol/L (3.3-5.1); Sodium 138 mmol/L (135-145); Total Protein 7.7 g/dL (6.5-8.0); Triglycerides 201 mg/dL (<150)
[2024-09-16 14:33] LABS: Alkaline Phosphatase 73 U/L (39-117)
[2024-09-16 14:35] LABS: Creatinine Urine 59.79 mg/dL; Microalbum/Creatinine Ratio Ur 56.8 ug/mg cr (<30)
[2024-09-16 15:26] LABS: Prostate Specific Antigen 1.73 ng/mL (<0.05-4.0)
== END 2024-09-16 09:08 | disposition home or self-care (01) ==
LOC: HO.MANLDS 09:07
PROVIDERS: Visit Provider Internal Medicine
DX: I10 Essential (primary) hypertension (principal); E11.9 Type 2 diabetes mellitus without complications; Z12.5 Encounter for screening for malignant neoplasm of prostate
CPT/HCPCS: 36415; 80053; 80061; 82043; 82570; 83036; 84153; 85025

== ENCOUNTER 2024-12-28 10:13 | Outpatient (REF) | payer MEDICARE, SELFPAY ==
--- OUTSIDE RECORDS SUMMARY | 2024-12-28 11:33 | XMS_ITS | Data Portability ---
Author Organization [facility], Telehealth Patient Home Address [address] [place] [address] Assessment Encounter Date Assessment Date Assessment LastModified by Organization Details LastModified Time 11/03/2023 11/03/2023 [id number] [place] [id number] (MASTER DATA ANALYST) MDM MODERATE MUST MEET 2 OUT OF [...] COVERED Not available 11/03/2023 14:04:19 12/16/2023 12/16/2023 [id number] [place] [id number] (MASTER DATA ANALYST) MDM MODERATE MUST MEET 2 OUT OF [...] COVERED Not available 12/16/2023 14:04:38 02/23/2024 02/23/2024 [id number] [place] [id number] (MASTER DATA ANALYST) [facility] MODERATE MUST MEET 2 OUT OF 3 [...] THOROUGHLY DOCUMENT EACH ELEMENT THAT IS COVERED [email or web address] Not available 02/23/2024 14:20:57 06/01/2024 06/01/2024 [id number] [place] [address] (MASTER DATA ANALYST) [facility] MODERATE MUST MEET 2 OUT OF 3 [...] THAT IS COVERED Not available 06/01/2024 16:22:39 09/23/2024 09/23/2024 [id number] [place] [address] (MASTER DATA ANALYST) [facility] MODERATE MUST MEET 2 OUT OF 3 [...] EACH ELEMENT THAT IS COVERED Not available 09/23/2024 14:13:34 Plan of Treatment Reminders Order Date Submit Date Provider Last Modified By Organization Details Last Modified Time Details Appointments FOLLOW UP 15 2024 01:30P M DR LEE Not available Not available Not available Lab HbA1c (hemoglob in A1c), blood 2024 025 [facility], [address] [place] [address], [id number], 09/23/2024 14:34:47 HbA1c (hemoglob in A1c), blood 2023 024 [facility], [address] [place] [address], [id number], 05/30/2024 11:31:17 HbA1c (hemoglob in A1c), blood 2023 024 [facility], [address] [place] [address], [id number], 05/30/2024 11:31:17 Referral None recorded. Procedures None recorded. Surgeries None recorded. Imaging None recorded. Medication Orders amlodipin e 5 mg tablet 2023 024 JOSH Not available 11/03/2023 14:08:17 Patient TargetsNo targets recorded. Patient InstructionsNo instructions recorded. Reason for Referral None Reported. Results Created Date Observation Date Name Description Value Unit Range Abnormal Flag Note LastModifiedBy Organization Detail LastModifiedTime Result Notes None recorded. Problems Name Problem SNOMED Code Status Onset Date Resolution Date Notes Provider Name and Address Organization Details Recorded Time Hypertensi ve disorder 15253425 Active 2020 Fredi Lee DO [address] [place] [address], [address], [facility] 1 12:18:21 Hyperkalem ia 49625758 Active 2021 Fredi Lee DO [address] [place], [address], [facility] 2 15:08:31 Renal insufficie [facility] 209948210 Active 2021 Fredi Lee, DO [address] [place], [address], [facility] 2 15:19:32 Type 2 diabetes mellitus 50788484 Active 2017 Vale martinez [facility] 8 12:10:24 Hypertrigl yceridemia 868116422 Active 2017 Vale martinez [facility] 8 12:10:55 Problem Notes None recorded. Procedures Surgical History Date Name Laterality Status Provider Name and Address Organization Details Recorded Time 0 Colonoscopy completed Vale Zaho [facility] 10/12/2019 10:17:59 Imaging Results None recorded. Procedure Notes None recorded. Medical Equipment None Reported. Allergies Allergen ID Allergen Name Allergen Category Reaction Reaction Severity Criticality Documentation Date Start Date Code Code System Note Provider Name and Address Organization Details Recorded Time 3785 metformin medicatio n diarrhea Not available Not available 10/12/2019 6809 RxNorm Fredi Lee, DO [address] [place], [address], [facility] 0 13:45:52 731 penicilli n V Not available Not available Not available Not available 10/07/2017 7984 RxNorm quest ionab le [facility] 8 12:10:16 Medications Name Sig Start Date [...] TAKE 3 TABLETS BY MOUTH EVERY DAY 2024 active Not Available Not Available Not Avai lable amoxicillin 500 mg tablet 01/23 completed Not [...] Not Available Not Available No t Available chlorhexidin e gluconate 0.12 % mouthwash 05/05 [...] TAKE 1 TABLET BY MOUTH TWICE DAILY 2024 active Not Available Not Available Not Avai lable OneTouch Verio Flex Start kit test blood sugar twice a day 05/01 completed Not Available Not Available Not Available Vitals Date Recorded Body height Body mass index (BMI) Body weight Heart rate Oxygen saturation Oxygen saturation in Arterial blood by Pulse oximetry Systolic blood pressure Diastolic blood pressure Provider Name and Address Organization Details Last Updated DateTime 5 170.18 cm 22.6 kg/m2 96567.3 g 89 /min 98 % 98 % 152 mm[Hg] 74 mm[Hg] Gretta Wilkerson [facility] 5 14:04:52 Date Recorded Body height Body mass index (BMI) Body weight Heart rate Oxygen saturation Oxygen saturation in Arterial blood by Pulse oximetry Systolic blood pressure Diastolic blood pressure Provider Name and Address Organization Details Last Updated DateTime 4 170.18 cm 22.3 kg/m2 92288.4 8 g 89 /min 97 % 97 % 162 mm[Hg] 82 mm[Hg] Gretta Wilkerson [facility] 4 13:47:48 Date Recorded Body height Body mass index (BMI) Body weight Heart rate Respiratory rate Oxygen saturation Oxygen saturation in Arterial blood by Pulse oximetry Systolic blood pressure Diastolic blood pressure Provider Name and Address Organization Details Last Updated DateTime 4 170.18 cm 22 kg/m2 27920.0 1 g 84 /min 16 /min 98 % 98 % 124 mm[Hg] 70 mm[Hg] Gonzalez Casas [facility] 4 13:50:48 Date Recorded Body height Body mass index (BMI) Body weight Heart rate Oxygen saturation Oxygen saturation in Arterial blood by Pulse oximetry Systolic blood pressure Diastolic blood pressure Provider Name and Address Organization Details Last Updated DateTime 4 170.18 cm 21.6 kg/m2 60730.1 1 g 88 /min 98 % 98 % 142 mm[Hg] 82 mm[Hg] Gonzalez Clarion [facility] 4 14:08:54 Date Recorded Body height Body mass index (BMI) Body weight Heart rate Oxygen saturation Oxygen saturation in Arterial blood by Pulse oximetry Systolic blood pressure Diastolic blood pressure Provider Name and Address Organization Details Last Updated DateTime 4 170.18 cm 21.5 kg/m2 98796.1 5 g 84 /min 100 % 100 % 148 mm[Hg] 68 mm[Hg] Kim Doan [facility] 4 16:17:27 Social History Question Answer Notes LastModified by Organizat ion Details LastModified Time Tobacco Smoking Status Never [facility] 01/25/2018 15:21:39 What Was The Date Of Your Most Recent Tobacco Screening? 09/23/2024 [email or web address] Information not available 09/23/2024 Sex: Unknown Functional Status Question Answer Note LastModified by Organization D etails LastModified Time Do you or have you ever used any other forms of tobacco or nicotine? No [email or web address] Information not available 01/23/2023 Mental Status None recorded. Family History Nothing Reported. Medical History No medical history recorded. Immunizations Vaccine Type Date Status Note Provider Nam e and Address Organization Details Recorded Time COVID-19, mRNA, LNP-S, PF, 30 mcg/0.3 mL dose 1 completed Fredi Lee, DO [address] [facility], [place], [address], [facility] 02/25/2021 13:35:34 COVID-19, mRNA, LNP-S, PF, 30 mcg/0.3 mL dose 1 completed Fredi Lee, [address], [address], [facility] Internal [facility] 02/25/2021 13:35:41 COVID-19, mRNA, LNP-S, PF, 30 mcg/0.3 mL dose 1 completed Ana martinez, [facility] 07/18/2022 08:42:54 COVID-19, mRNA, LNP-S, PF, 30 mcg/0.3 mL dose 2 completed Ana Harp null, [facility] 07/18/2022 08:43:01 zoster, unspecified formulation 0 completed Ana martinez, [facility] 07/18/2022 08:43:23 Tdap 1 completed Ana martinez, [facility] 07/18/2022 08:43:48 zoster, unspecified formulation 1 completed Fredi Lee, [address] [place] [address], [address], [facility] Internal [facility] 09/14/2020 14:11:42 Influenza, split virus, quadrivalent, preservative 0 completed Fredi Lee [address], [address], [facility] Internal [facility] 09/14/2020 14:12:08 Past Encounters Encounter ID Performer Location Encounter Start Date Encounter Closed Date Diagnosis/Indication Diagnosis SNOMED-CT Code Diagnosis ICD10 Code Diagnosis Note [id number] Fredi Lee [facility] [address] [place] [address],[place] [address] 01/25/2018 14:49:26 01/25/2018 16:14:45 Type 2 diabetes mellitus 01298841 E11.9 [id number] Fredi Lee [facility] [address] [place] [address],[place] [address] 05/07/2018 13:46:45 05/07/2018 14:48:07 Hypertriglyceridemia 208757613 E78.1 here for check up will get a new lab in the spring Type 2 cherry betes mellitus 28541056 E11.9 a1c has crept up with no apparent reason wgt is stable but not exercising like he used to but will attend to this will rechk in 3-4 months [id number] Fredi Lee DO [facility] Internal [facility] [address] [facility], [facility] [address] 09/01/2018 13:39:51 09/01/2018 14:15:46 Hypertriglyceridemia 589625411 E78.1 here for check up will get a new lab in the spring Type 2 cherry betes mellitus 86336612 E11.9 a1c has crept up again with no apparent reason wgt is stable but not exercising like he used to but we talked about checking sugars throughout the day and figuring out the reason for the elevation will rechk in 3-4 months [id number] Fredi Lee [facility] [address] [facility], [place] [address] 09/24/2018 11:44:45 09/24/2018 12:11:11 Type 2 diabetes mellitus 79601627 E11.9 a1c has crept up again with no apparent reason wgt is stable but not exercising like he used to but we talked about checking sugars throughout the day and figuring out the reason for the elevation will rechk in 3-4 months will now have him check the sugars in the evening and at bedtime [id number] Fredi Lee DO [address], [place] [address] 12/29/2018 13:42:32 12/29/2018 14:18:02 Type 2 diabetes mellitus 18151595 E11.9 a1c has improved overall and is [...] the evening and at bedtime Hypertriglyceridemia 302 676329 E78.1 here for check up will get a new lab in the spring [id number] Fredi Lee [facility] [address] [facility],[place] [address] 04/01/2019 13:43:54 04/01/2019 15:21:22 Type 2 diabetes mellitus 25705116 E11.9 a1c has improved overall and is [...] the evening and at bedtime Hypertriglyceridemia 302 930653 E78.1 here for check up will get a new lab in the spring [id number] Fredi Lee [facility] [address] [facility], [place] [address] 07/04/2019 13:56:45 07/04/2019 14:14:20 Type 2 diabetes mellitus 35531850 E11.9 a1c is up to 8.2 from 6.7 wgt is up to 146 will rechk in 3-4 months will increase glimepirid e to bid Hypertriglyceridemia 302 397677 E78.1 here for check up will get a new lab in the summer [id number] Fredi Lee [facility] [address] [facility], [place] [address] 10/12/2019 13:32:59 10/12/2019 14:12:59 Type 2 diabetes mellitus 60520640 E11.9 a1c is up to 9.0 from [...] call beforehand for lab slip Hypertriglyceridemia 302 574239 E78.1 here for check up will get a new lab in the summer [id number] Fredi Lee [facility] [address] [facility],[place] [address] 01/17/2020 13:31:18 01/17/2020 13:58:40 Hypertriglyceridemia 892794555 E78.1 here for check up and the LDL is down to 75!!!!! Type 2 cherry betes mellitus 95967408 E11.9 a1c is at 6.5 and was up to 9.0 from 8.2 from 6.7 his janumet samples are not covered without a prior auth wgt is 146 and no change will rechk in 3-4 months glimepirid e to daily sarah need new lab for this oct appt pt to call beforehand for lab slip [id number] Fredi Lee [facility] [address] [facility] [place] [address] 05/01/2020 13:44:53 05/01/2020 14:14:05 Hypertriglyceridemia 680160650 E78.1 here for check up and the LDL is down to 75!!!!! Type 2 cherry betes mellitus 27849933 E11.9 a1c is still at 6.5 and was 6.5 from last one and was up to 9.0 from 8.2 from 6.7 his janumet samples are not covered without a prior auth wgt is 146 and no change will rechk in 3-4 months glimepirid e to daily sarah need new lab for this oct appt pt to call beforehand for lab slip [id number] Fredi Lee [facility] [address] [facility] [place] [address] 09/14/2020 14:00:34 09/14/2020 15:25:05 Hypertriglyceridemia 885772387 E78.1 here for check up and the LDL is down to 75!!!!! Type 2 cherry betes mellitus 17000508 E11.9 a1c is still at 6.5 and was 6.5 from last one and was up to 9.0 from 8.2 from 6.7 his janumet samples are not covered without a prior auth wgt is 146 and no change will rechk in 3-4 months glimepirid e to daily sarah need new lab for this oct appt pt to call beforehand for lab slip Essential hypertension 56124900 I10 will need to be aggressive [id number] Fredi Lee [facility] [address] [facility], [place] [place] [facility] [address] 09/28/2020 12:11:25 09/28/2020 14:04:31 Hypertensive disorder 29315515 I10 will cont 10mg lisinopril as he had good bps at home he will record your bps on paper and will bring paper back Type 2 cherry betes mellitus 46291864 E11.9 a1c is still at 6.5 and was 6.5 from last one and was up to 9.0 from 8.2 from 6.7 his janumet samples are not covered without a prior auth wgt is 146 and no change will rechk in 3-4 months glimepirid e to daily will try the increase in janumet but will go back ot 1 if heartburn returns Adult heal th examination 236748998 Z00.00 will need to have this done please [id number] Fredi Lee, [facility] [address],[place] [address] 11/05/2020 13:29:36 11/05/2020 14:09:18 Hypertensive disorder 73974895 I10 bp is now back to normal and no issues Hypertriglyceridemia 302 302430 E78.1 here for check up and the LDL is down to 75!!!!! Type 2 cherry betes mellitus 38098195 E11.9 he is much improved from 8.1 and doing good with 2 janumet and no side effects his a1c is now 7.6 and believe it is even lower than that now [id number] Fredi Lee, [facility] [address],[place] [facility] [address] 02/25/2021 13:33:17 02/25/2021 13:57:57 Hypertensive disorder 45993670 I10 bp is now back to normal and no issues but we are wondering if lisinopril was culprit with diarrhea ?? Hypertriglyceridemia 302 251580 E78.1 here for check up and the LDL is down to 75!!!!! Type 2 cherry betes mellitus 99822519 E11.9 he is 6.0 much improved from 8.1 and doing good with 2 janumet and no(?) side effects his a1c is now 6 and believe it is even lower than that now [id number] Fredi Lee [facility] [address] [facility] [address],[place] [address] 06/24/2021 08:57:01 06/24/2021 14:28:17 Hypertensive disorder 26801610 I10 bp is now back to normal and no issues but we are wondering if lisinopril Hypertriglyceridemia 302 007111 E78.1 here for check up and the LDL is down to 75!!!!! Type 2 cherry betes mellitus 52578504 E11.9 latest a1c is 6.1 he was 6.0 much improved from 8.1 and doing good with 2 janumet and one glimepirid 3 and no(?) side effects his a1c is now 6,1 and believe it is even lower than that now [id number] Fredi Lee [facility] [address] [facility],[place] [address] 10/02/2021 13:31:59 10/04/2021 11:47:48 Type 2 diabetes mellitus 26629227 E11.9 latest a1c is 6.2 was 6.1 he was 6.0 much improved from 8.1 and doing good with 2 janumet and one glimepirid 3 and no(?) side effectshas gained some wgthis a1c is now 6,1 and believe it is even lower than that now Hypertensive disorder 38 030383 I10 bp is now back to normal and no issues but we are wondering if lisinopril Hypertriglyceridemia 302 741498 E78.1 here for check up and the LDL is down to 75! 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 he is to stop the lisinopril and will rechk lab in a few days Hypertensive disorder 38 723549 I10 bp is now back to normal and no issues but we are wondering if lisinopril should be discont Type 2 cherry betes mellitus 94697245 E11.9 latest a1c is 6.1 was 6.1 he was 6.0 much improved from 8.1 and doing good with 2 janumet and one glimepirid 3 and no(?) side effectshas gained some wgthis a1c is now 6,1 and believe it is even lower than that now Hypertriglyceridemia 302 925371 E78.1 here for check up and the LDL is down to 99 was 75 [id number] Fredi Lee, [facility] [address] [facility],[place] [address] 02/11/2022 14:40:21 02/11/2022 15:33:24 Advance care planning 983615111 Z71.89 done Type 2 cherry betes mellitus 80375886 E11.9 latest a1c is 6.1 was 6.1 he was 6.0 much improved from 8.1 and doing good with 2 janumet and one glimepirid 3 and no(?) side effectshas gained some wgthis a1c is now 6,1 and believe it is even lower than that nowpatient advised he is due for DM eye exam Depression screening 171 409597 Z13.31 screening today negative Renal insufficiency 7231 65086 N28.9 due to combinatio n of htn DM and primarily dehydratio n as evid by BUN of 40now that he is drinking plenty of h20 his creat clr is better we will cont to follow this and pt will follow his bp at home as well [id number] Fredi Lee, [facility] [address] [facility],[place] [address] 04/14/2022 16:13:55 04/14/2022 16:53:17 Hypertensive disorder 23770029 I10 we will try amlodipine Type 2 cherry betes mellitus 40152115 E11.9 latest a1c is 6.1 was 6.1 he was 6.0 much improved from 8.1 and doing good with 2 janumet and one glimepirid 3 and no(?) side effectshas gained some wgthis a1c is now 6,1 and believe it is even lower than that nowpatient advised he is due for DM eye exam Renal insufficiency 7231 33956 N28.9 renal parameters are better after rechk and do not expect any further issuewill rechk in few mo [id number] Fredi VanceSabrina Lee [facility] [address] [facility],[place] [address] 07/18/2022 13:39:11 07/18/2022 14:24:49 Type 2 diabetes mellitus 67987391 E11.9 latest a1c is 6.3 was 6.1 he was 6.0 much improved fromhas gained some wgthis a1c is now 6,1 and believe it is even lower than that nowpatient advised he is due for DM eye exam Hypertensive disorder 38 200874 I10 we will try amlodipine 10 mg [id number] Fredi WoodardSabrina Lee [facility] [address] [facility],[place] [address] 01/23/2023 13:45:29 01/23/2023 14:15:45 Hypertensive disorder 71374059 I10 we will cont amlodipine 10 mg Type 2 cherry betes mellitus 67580743 E11.9 latest a1c isdwon to 6 from 6.6 was 6.3 was 6.1 he was 6.0 much improved fromhas lost some wgthis a1c is now 6,0 and believe it is even lower than that nowpatient advised he is due for DM eye exam Renal insufficiency 7231 64475 N28.9 renal parameters are better after rechk and do not expect any further issuewill rechk in few mo Hyperkalemia 35038785 E8 7.5 resolved [id number] Fredi Lee [facility] [address] [facility],[place] [address] 05/05/2023 13:46:52 05/05/2023 15:07:23 Hyperkalemia 64373559 E87.5 resolved Hypertriglyceridemia 302 558837 E78.1 here for check up and will have this rechk next visit Type 2 cherry betes mellitus 37174551 E11.9 latest a1c is down to 6.1 to 6 from 6.6 was 6.3 was 6.1 he was 6.0 much improved fromhas lost some wgtpatient advised he is due for DM eye exam again Hypertensive disorder 38 770499 I10 we will cont amlodipine 10 mg [id number] Fredi Lee [facility] [address] [facility], [place] [place] [facility] [address] 07/17/2023 09:08:20 07/17/2023 13:57:31 Hypertriglyceridemia 683515739 E78.1 here for check up and will have this rechk next visit Type 2 cherry betes mellitus 35016638 E11.9 latest a1c is up to 6.4 6.1 to 6 from 6.6 was 6.3 was 6.1 he was 6.0 much improved fromhas lost some wgtpatient advised he is due for DM eye exam again Hypertensive disorder 38 742858 I10 we will cont amlodipine 10 mg [id number] Fredi Lee [facility] [address] [facility], [place] [facility] 7 11/03/2023 13:41:38 11/03/2023 15:45:26 Hypertriglyceridemia 017849176 E78.1 here for check up and will have this rechk next visit Hypertensive disorder 38 330144 I10 has been checking at home and bp has been elevatedwi ll try going to 15mg given he is tolerating the amlodipine so well Type 2 cherry betes mellitus 82011830 E11.9 latest a1c is up to 6.7, 6.4 to 6.1 from 6.6 was 6.3has not been active all last winterpati ent advised he is due for DM eye exam again [id number] Fredi Lee [facility] [address] [facility], [place] [address] 12/16/2023 13:44:50 12/16/2023 15:46:24 Hypertensive disorder 01379503 I10 has been checking at home and bp has [id number] given he is tolerating the amlodipine so well Hypertriglyceridemia 302 759436 E78.1 here for check up and will have this rechk next visit Type 2 cherry betes mellitus 78932162 E11.9 latest a1c is up to 6.7, 6.4 to 6.1 from 6.6 was 6.3has not been [facility] he is due for DM eye exam again Depression screening 171 462778 Z13.31 screening today negative [id number] Fredi Lee [facility] [address] [facility], [place] [address] 02/23/2024 14:03:32 02/23/2024 14:52:14 Hypertensive disorder 92006537 I10 has been checking at home and bp has [id number] given he is tolerating the amlodipine so well Type 2 cherry betes mellitus 56780395 E11.9 a1c is down to 6.4 was 6.7 no issues now [id number] Fredi Lee [facility] [address] [facility],[place] [address] 06/01/2024 16:12:47 06/01/2024 16:40:52 Type 2 diabetes mellitus 05682197 E11.9 a1c is down to 6.5 doing ok 6.4 was 6.7 no issues now Hypertensive disorder 38 130873 I10 has been checking at home and bp has [id number] given he is tolerating the amlodipine so well [id number] Fredi Lee DO [facility] [address] [facility], [place] [address] 09/23/2024 13:57:13 09/23/2024 14:23:49 Hypertensive disorder 13769138 I10 has been checking at home and bp15mg given he is tolerating the amlodipine so well Hyperkalemia 72769887 E8 7.5 resolved Hypertriglyceridemia 302 437961 E78.1 here for check up and will have this rechk next visit Type 2 cherry betes mellitus 50788309 E11.9 a1c is down to 6.5 doing ok 6.4 was 6.7 no issues now Depression screening 171 468727 Z13.31 screening today negative Health Concerns Section Related Observation LastModified by Organization Detai ls LastModified Time None Recorded Concern Status LastModified by Organization Details LastModified Time None Recorded Advance Directives Directive None Recorded Payers Insurance Date Sequence Insurance Name Policy Number Policy Alston Covered Member ID Alston Member ID Guarantor Name 09/30/2024 2 [place] Castro Noyola 09/21/2024 1 [place] [employer] Castro Noyola [id number] Castro Noyola 02/23/2024 1 [facility] [id number] Castro Dennys [id number] Castro Noyola 09/14/[address] [facility] [id number] Daja Dennys [id number] Castro Noyola Notes Date Note Type Note Provider Name [...] raising of his bp Fredi Lee DO [address] [place] [address], [phone], [facility] 11/03/2023 14:10:44 4 text/htm l here for rechk and is doing ok overallthe amlodipine glimepiride and janumet doing great lost some wgt Fredi Lee DO [address] [place], [phone], [facility] 12/16/2023 14:07:33 4 text/htm [...] relates that he has been working outsidewgt [id number] is 6.4 was 6.7 Fredi Lee DO [address] [place] [address], [phone], [facility] 02/23/2024 14:23:58 4 text/htm [...] doing ok overallno major issues noted Fredi Lee DO [address] [place], [phone], [facility] 06/01/2024 16:38:54 5 text/htm l Care Management - DiabetesReported bypatient.Self [...] vision; no confusion; no headaches; no fatigue Fredi Lee, DO [address] [place], [phone], [facility] 09/23/2024 14:20:35
[2024-12-28 13:51] LABS: Estimated Average Glucose 157 mg/dL; Hemoglobin A1c % 7.1 % (<6.0); Total Hemoglobin (HGBA1C) 3495.8658 umol/L
== END 2024-12-28 10:14 | disposition home or self-care (01) ==
LOC: HO.MANLDS 10:13
PROVIDERS: Visit Provider Internal Medicine
DX: E11.9 Type 2 diabetes mellitus without complications (principal)
CPT/HCPCS: 36415; 83036

== ENCOUNTER 2025-04-03 10:06 | Outpatient (REF) | payer MEDICARE, SELFPAY ==
--- OUTSIDE RECORDS SUMMARY | 2025-04-03 12:28 | XMS_ITS | Encounter Summary ---
Author Organization [facility] Address [address] [place] [address] Phone Care Team Providers Care Area Coordinator Name Role Phone Fredi Gtuiérrez DO Primary Care Provider [phone] Fredi Gutiérrez DO Primary Care Provider [phone] Encounter Details Date Type Department Care Team (Late st Contact Info) Description 09/22/2017 Transcribe Orders [facility] [address] [place] [id number] Fredi Gutiérrez DO [address] [facility] [place] [address] [place] [address] Severe uncontrolled diabetes mellitus (Primary Dx) Social History Tobacco Use Types Packs/Day Years Used Date Smoking Tobacco: Never Assessed Sex and Gender Information Value Date Recorded Sex Assigned at Not on file Legal Sex Male 9:55 PM EDT Gender Identity Not on file Sexual Orientation Not on file documented as of this encounter Plan of Treatment Not on file documented as of this encounter Results * C-peptide (09/22/2017 9:18 AM EDT) C-PEPTIDE 2.1 1.1 - 4.4 ng/mL [facility] SUPER[facility] SMALL Blood 09/22/2017 9:18 AM EDT 09/22/2017 9:20 AM EDT us Fredi Gutiérrez DO LAB BLOOD ORDERABLES Final Resul t [facility]PATH [address] [place] [address] * Insulin Level (09/22/2017 9:18 AM EDT) INSULIN 8.9 2.6 - 24.9 mcIU/mL [facility] LAB MED/PATH SUPERIOR Blood 09/22/2017 9:18 AM EDT 09/22/2017 9:20 AM EDT us Fredi Gutiérrez DO LAB BLOOD ORDERABLES Final Resul t [facility] LAB MED/PATH SUPERIOR [address] [place] [address] documented in this encounter Visit Diagnoses Diagnosis Severe uncontrolled diabetes mellitus- Primary Type II or unspecified type diabetes mellitus without mention of complication, uncontrolled documented in this encounter Care Teams Area Coordinator Relationship Specialty Start Date End Date Fredi Gutiérrez DO PCP - General Internal Medicine 09/22/17 08/29/24 Fredi Gutiérrez DO [address] [place] [address] PCP - General Internal Medicine 08/30/24 documented as of this encounter Additional Source Comments The information contained in this document represents components of the legal health record. It is not the complete legal health record.[facility]
--- OUTSIDE RECORDS SUMMARY | 2025-04-03 12:28 | XMS_ITS | Clinical Summary ---
Author Organization [facility] Address [address] [place] [address] [place] [address] Phone Care Team Providers Care Floral Manager Name Role Phone Fredi Gutiérrez DO Primary Care Provider [phone] Social History Tobacco Use Types Packs/Day Years Used Date Smoking Tobacco: Never Assessed Education Answer Date Recorded Are you interested in more education? Not on hermelindo e 11/07/2022 Are you concerned about learning? Not on file 11/07/2022 No 11/07/2022 No 11/07/2022 Digital Access Answer Date Recorded No 12/08/2022 No 12/08/2022 No 12/08/2022 Reliable internet access at home? Not on file 12/08/2022 Device with a working camera? Not on file Sex and Gender Information Value Date Recorded Sex Assigned at Not on file Legal Sex Male 9:55 PM EDT Gender Identity Not on file Sexual Orientation Not on file Plan of Treatment Not on file Medical Devices Not on file Insurance MEDICARE PART A & B MEDICARE PART A & B MEDICARE PART A & B MEDICARE PART A & B MEDICARE PART A & B MEDICARE PART A & B Care Teams Floral Manager Relationship Specialty Start Date End Date Fredi Gutiérrez DO [address] [place] [phone] [email or web address] PCP - General Internal Medicine 08/30/24 Additional Source Comments The information contained in this document represents components of the legal health record. It is not the complete legal health record.[facility]
[2025-04-03 13:29] LABS: Hemoglobin A1C 194.5070 umol/L; Total Hemoglobin (HGBA1C) 3545.2930 umol/L
== END 2025-04-03 10:07 | disposition home or self-care (01) ==
LOC: HO.MANLDS 10:06
PROVIDERS: Visit Provider Internal Medicine
DX: E11.9 Type 2 diabetes mellitus without complications (principal)
CPT/HCPCS: 36415; 83036

== ENCOUNTER 2025-07-03 08:37 | Outpatient (REF) | payer MEDICARE, SELFPAY ==
--- OUTSIDE RECORDS SUMMARY | 2025-07-03 08:56 | XMS_ITS | Encounter Summary ---
Author Organization [facility] Address [address] [place] [address] Phone Care Team Providers Care Cook Helper Meat Name Role Phone Fredi Gutiérrez DO Primary Care Provider [phone] Fredi Gutiérrez DO Primary Care Provider [phone] Encounter Details Date Type Department Care Team (Late st Contact Info) Description 09/22/2017 Transcribe Orders [facility] [address] [place] [address] Fredi Gutiérrez DO [address] [facility] [address] [place], [place] [id number] [email or web address] Severe uncontrolled diabetes mellitus (Primary Dx) Social [...] EDT) C-PEPTIDE 2.1 1.1 - 4.4 ng/[facility] Blood 09/22/2017 9:18 AM EDT 09/22/2017 9:20 AM EDT us Fredi Gutiérrez DO LAB BLOOD ORDERABLES Final Resul t [facility] MED/PATH [address] [place] [address] * Insulin Level (09/22/2017 9:18 AM EDT) INSULIN 8.9 2.6 - 24.9 mcIU/mL [facility] MED/PATH SUPERIOR Blood 09/22/2017 9:18 AM EDT 09/22/2017 9:20 AM EDT us Fredi Gutiérrez DO LAB BLOOD BKR ORDERABLES Final R esult [facility] LAB MED/PATH [address] [place] [address] documented in this encounter Visit Diagnoses Diagnosis Severe uncontrolled diabetes mellitus- Primary Type II or unspecified type diabetes mellitus without mention of complication, uncontrolled documented in this encounter Care Teams Cook Helper Meat Relationship Specialty Start Date End Date Fredi Gutiérrez DO PCP - General Internal Medicine 09/22/17 08/29/24 Fredi Gutiérrez DO [address] [place] [address] PCP - General Internal Medicine 08/30/24 documented as of this encounter Additional Source Comments The information contained in this document represents components of the legal health record. It is not the complete legal health record.[facility]
--- OUTSIDE RECORDS SUMMARY | 2025-07-03 08:56 | XMS_ITS | Clinical Summary ---
Author Organization [facility] Address [address] [place] [address] [place] [address] Phone Care Team Providers Care Insurance Legal Assistant Name Role Phone Fredi Gutiérrez DO Primary Care Provider [phone] Social History Tobacco Use Types Packs/Day Years [...] MEDICARE PART A & B Care Teams Insurance Legal Assistant Relationship Specialty Start Date End Date Fredi Gutiérrez DO [address] [place] [phone] [email or web address] PCP - General Internal Medicine 08/30/24 Additional Source Comments The information contained in this document represents components of the legal health record. It is not the complete legal health record.[facility]
== END 2025-07-03 08:38 | disposition home or self-care (01) ==
LOC: HO.MANLDS 08:37
PROVIDERS: Visit Provider Internal Medicine
DX: E11.9 Type 2 diabetes mellitus without complications (principal)
CPT/HCPCS: 36415; 83036